=== PATIENT | male | born 2000 | race Caucasian/White ===

== ENCOUNTER 2020-08-29 19:59 | Emergency (ER) | payer SELFPAY ==
[2020-08-29] MEDS ORDERED: CYCLOBENZAPRINE10 MG PO (20:44)
[2020-08-29] MEDS ORDERED: IBU800 MG PO (20:44)
== END 2020-08-29 21:39 | disposition home or self-care (01) ==
LOC: ER1 19:59
DX: S93.402A Sprain of unspecified ligament of left ankle, initial encounter (principal); F17.210 Nicotine dependence, cigarettes, uncomplicated; Z88.0 Allergy status to penicillin; X50.9XXA Other and unspecified overexertion or strenuous movements or postures, initial encounter; Y92.830 Public park as the place of occurrence of the external cause
CPT/HCPCS: 73610; 73630; 96372; 99283; J1885

== ENCOUNTER 2021-06-07 14:11 | Emergency (ER) | payer OTHER ==
[~2021-06-07 14:11] MED LIST: CYCLOBENZAPRINE10 MG PO; IBU800 MG PO
== END 2021-06-07 15:20 | disposition home or self-care (01) ==
LOC: ER1 14:11
DX: U07.1 COVID-19 (principal); B34.9 Viral infection, unspecified; Z88.0 Allergy status to penicillin; F17.200 Nicotine dependence, unspecified, uncomplicated
CPT/HCPCS: 99284; U0003